=== PATIENT | female | born 1980 | race Caucasian/White ===

== ENCOUNTER 2017-01-15 00:16 | Emergency (ER) | payer BC, OTHER ==
[~2017-01-15] VITALS: Ht 167.6 cm; Wt 72.6 kg
[2017-01-15 00:21] VITALS: BP 108/66
[2017-01-15 01:00] LABS: Urine RBC None Seen /hpf (0 - 4)
[2017-01-15 01:11] LABS: Urine Bilirubin Negative (Negative); Urine Blood Negative /uL (Negative); Urine Color Yellow (Yellow); Urine Glucose Normal (Normal); Urine Ketone Negative (Negative); Urine Nitrite Negative (Negative); Urine Squamous Epithelial Cell MOD /hpf (<5); Urine Urobilinogen Normal (Negative)
== END 2017-01-15 03:00 | disposition left against medical advice (07) ==
LOC: ER 00:16
DX: R10.9 Unspecified abdominal pain (principal); Z53.21 Procedure and treatment not carried out due to patient leaving prior to being seen by health care provider
CPT/HCPCS: 81001

== ENCOUNTER → 2019-09-09 | Outpatient (CLI) | payer BC ==
[2019-09-09 15:52] LABS: Urine Blood Negative /uL (Negative); Urine Specific Gravity 1.017 (1.001-1.035)
[2019-09-09 16:02] LABS: Calcium 9.2 mg/dL (8.5-10.1)
[2019-09-09 16:07] LABS: Bilirubin, Direct 0.1 mg/dL (0-0.2); Bilirubin, Total 0.5 mg/dL (0.2-1.0); Total Protein 7.8 g/dL (6.4-8.2)
== END | disposition home or self-care (01) ==
LOC: LAB 12:21
PROVIDERS: ATTEND Internal Medicine Cardiovascular Disease
DX: Z00.00 Encounter for general adult medical examination without abnormal findings (principal); K90.9 Intestinal malabsorption, unspecified; N39.0 Urinary tract infection, site not specified; Z79.899 Other long term (current) drug therapy
CPT/HCPCS: 36415; 80048; 80061; 80076; 81003; 82306; 83036; 84443

== ENCOUNTER → 2019-10-10 | Outpatient (CLI) | payer BC | END | disposition home or self-care (01) | LOC: Rad HDHVI 11:10 | PROVIDERS: ATTEND Internal Medicine Cardiovascular Disease | DX: Z00.00 Encounter for general adult medical examination without abnormal findings (principal); E03.9 Hypothyroidism, unspecified; K20.9 Esophagitis, unspecified; N39.0 Urinary tract infection, site not specified; D51.9 Vitamin B12 deficiency anemia, unspecified; Z79.899 Other long term (current) drug therapy | CPT/HCPCS: 93306 ==

== ENCOUNTER → 2024-09-01 | Outpatient (CLI) | payer BC | END | disposition home or self-care (01) | LOC: Rad HDHVI 15:35 | PROVIDERS: ATTEND Internal Medicine Cardiovascular Disease | DX: I34.0 Nonrheumatic mitral (valve) insufficiency (principal); I47.10 Supraventricular tachycardia, unspecified | CPT/HCPCS: 93306 ==

== ENCOUNTER → 2024-09-02 | Outpatient (CLI) | payer BC ==
[~2024-09-02] VITALS: Ht 165.1 cm; Wt 68.0 kg
--- NOTE | 2024-09-13 15:00 | DVHSR ---
APPROVED REPORT Exam: Nuclear Stress Test Indication: Pre-Operative CV evaluation Ht: 5 ft 5 in Wt: 150 lbs BSA: 1.75 m2 HR: 52 bpm BP: 124/76 mmHg BMI: 24.95 Rhythm: Bradycardia Medical History Medical History: SVT, SOB, Palpitations Medications: Effexor, Klonopin Allergies: Morphine Cardiac Risk Factors: Family Hx of CAD Stress Test Details Stress Test: Exercise stress testing was performed using a Abdias protocol. HR Resting HR: 52 bpmMax Heart Rate (APMHR): 178.519200 bpm Max HR Achieved: 160 bpmTarget HR (85% APMHR): 151.843282 bpm % of APMHR: 89.89 Recovery HR: 86 bpm HR response to stress: Normal HR response to stress BP Resting BP: 124/76 mmHg Max BP: 136/58 mmHg Recovery BP: 136/58 mmHg BP response to stress: Normal blood pressure response to stress. ECG Resting ECG: Sinus Bradycardia Stress ECG: Sinus Tachycardia Arrhythmia: None Recovery ECG: Sinus Rhythm Clinical Reason for Termination: Target HR achieved Stress Symptoms: None Exercise duration: 10 min sec Exercise capacity: 13.4 METs Stress ECG Conclusion NON ISCHEMIC CLINICAL RESPONSE NON ISCHEMIC ECG RESPONSE PERFUSION SCAN SHOWS LESS THAN 10% LIKELIHOOD FOR STRESS INDUCED ISCHEMIA EF >55% NM EXAM: Myocardial Perfusion REST/STRESS Imaging Protocol: Rest Tc-99m/Stress Tc-99m 1 day Resting Data Rest SPECT myocardial perfusion imaging was performed in supine position 30 minutes following the int ravenous injection of 10.97 mCi of Tc-99m Sestamibi. Time of rest injection: 812 Time of rest imagin Administration Route: IV Administration Site: Right AC Exercise Stress At peak stress, the patient was injected intravenously with 32.5 mCi of Tc-99m Sestamibi. Time of stress injection: 917 Time of stress imagin Administration Route: IV Administration Site: Right AC Heart Rate at time of stress injection: 151 bpm. Patient continued to exercise for 0.5 minute(s). Gated Stress SPECT was performed 15 minutes after stress injection. The images were gated to evaluate regional wall motion and calculate left ventricular ejection fracti on. Comments Cardiolite injection at 9 minutes, 36 seconds into test. Study Data Post stress, the left ventricular ejection was >55%.. Nuclear Conclusion NON ISCHEMIC CLINICAL RESPONSE NON ISCHEMIC ECG RESPONSE PERFUSION SCAN SHOWS LESS THAN 10% LIKELIHOOD FOR STRESS INDUCED ISCHEMIA EF >55%
== END | disposition home or self-care (01) ==
LOC: Rad HDHVI 08:03
PROVIDERS: ATTEND Internal Medicine Cardiovascular Disease
DX: Z01.818 Encounter for other preprocedural examination (principal); R06.02 Shortness of breath; R00.2 Palpitations; Z79.899 Other long term (current) drug therapy; R00.0 Tachycardia, unspecified; R00.1 Bradycardia, unspecified; F32.1 Major depressive disorder, single episode, moderate; I34.1 Nonrheumatic mitral (valve) prolapse; Z82.49 Family history of ischemic heart disease and other diseases of the circulatory system
CPT/HCPCS: 78452; 93017; 96374; A9500